=== PATIENT | male | born 1980 | race Caucasian/White ===

== ENCOUNTER 2017-05-18 14:50 | Inpatient (IN) | payer OTHER ==
[~2017-05-18] VITALS: Ht 185.4 cm; Wt 141.5 kg
--- NOTE | ~2017-05-18 | EKG ---
[place], [place] ELECTROCARDIOGRAM REPORT NAME: CARMEN KIRAN JR UNIT #: [id number] ROOM: 411 DOCTOR: DIONY LAIRD MD BIRTHDATE: [birth year] DOS: 05/18/2017 TIME: 2218. IMPRESSION: Sinus rhythm, normal ECG. No prior EKGs to compare. Diony Laird MD CM:EKGRPT:ELECTROCARDIOGRAM REPORT 06 16 DIONY LAIRD MD
[~2017-05-18 14:50] MED LIST: ACETAMINOPHEN-H1 TA2 PO; ATARAX25 MG PO; BACTRIM DS 8001 TA1 PO; BACTROBAN OINT22 GM PO; CITALOPRAM HYDR20 MG PO; CLINDAMYCIN HC300 MG PO; COLCHICINE0.6 M2 PO; DUONEB 3 MG/3 ML3 M1 INH; FLEXERIL5 MG PO; HYDROCODONE BIT1 T11 PO; HYDROXYZINE PAM25 MG PO; INDOMETHACIN50 MG PO; KEFLEX500 MG PO; LISINOPRIL AND1 TA2 PO; MEDROL DOSEPAK4 MG PO; NAPROSYN500 MG PO; NAPROXEN500 MG PO; NORCO 325 MG-51 TAB PO; NORFLEX100 MG PO; PAXIL20 MG PO; PERCOCET 325 MG1 TA7 PO; PHENERGAN W/ DE30 ML PO; PREDNICOT10 MG PO; PREDNISONE20 M1 PO; PREDNISONE20 MG PO; PROAIR HFA0.09 MG/AC INH; PROAIR HFA8.5 GM INH; TRAMADOL HCL50 MG PO; VICO10300 PO; VICODIN 5/500 505 MG PO; XANAX1 MG PO
[2017-05-18 15:22] VITALS: BP 141/85
[2017-05-18 16:40] LABS: HEMATOCRIT 39.7 % (42.0-52.0); HEMOGLOBIN 13.5 g/dl (14.0-18.0); MEAN CELL VOLUME 86.3 fl (80.0-94.0); MEAN CORPUSCULAR HGB 29.3 pg (27.0-31.0); MEAN PLATELET VOLUME 8.7 fl (9.6-12.3); PLATELET COUNT AUTOMATED 261 10*3/uL (130-400); RED CELL DISTRI WIDTH 12.9 % (0-14.5); WHITE BLOOD COUNT 16.4 10*3/uL (4.8-10.8)
[2017-05-18 16:56] LABS: ALBUMIN 3.4 gm/dl (3.1-4.5); ALKALINE PHOSPHATASE 114 U/L (45-117); BUN 14 mg/dl (7-24); CHLORIDE 104 mmol/L (98-107); CREATININE 0.93 mg/dL (0.70-1.30); POTASSIUM 3.9 mmol/L (3.5-5.1); SGOT/AST 19 IU/L (3-35); SGPT/ALT 27 U/L (12-78); SODIUM 139 mmol/L (136-145); TOTAL PROTEIN 7.6 gm/dL (6.4-8.2)
[2017-05-18 16:57] LABS: TROPONIN I < 0.015 ng/ml (<0.045)
[2017-05-18 16:58] LABS: ATYPICAL LYMPHS 2 % (0-0); TOTAL CELLS COUNTED 100 #CELLS
[2017-05-18 16:59] LABS: PLATELET SUFFICIENCY NORMAL (NORMAL)
[2017-05-18 18:29] VITALS: BP 167/97
[2017-05-18 18:48] VITALS: BP 131/84
[2017-05-18 20:00] VITALS: BP 147/87
[2017-05-19] VITALS: BP 129/62
[2017-05-19 04:00] VITALS: BP 130/74
[2017-05-19 07:00] LABS: ALBUMIN 3.2 gm/dl (3.1-4.5); ALKALINE PHOSPHATASE 105 U/L (45-117); BASO # 0.1 10*3/uL (0.0-0.1); BASO % 0.5 % (0.0-1.0); BUN 14 mg/dl (7-24); CHLORIDE 105 mmol/L (98-107); CHOLESTEROL 178 mg/dL (<200); CREATININE 0.89 mg/dL (0.70-1.30); FREE T4 0.97 ng/dl (0.76-1.46); HDL CHOLESTEROL 41 mg/dl (40-60); HEMATOCRIT 39.7 % (42.0-52.0); HEMOGLOBIN 13.6 g/dl (14.0-18.0); LDL CHOLESTEROL 127 mg/dL (9-159); LYMPH # 1.2 10*3/uL (1.3-4.4); MEAN CELL VOLUME 87.1 fl (80.0-94.0); MEAN CORPUSCULAR HGB 29.8 pg (27.0-31.0); MEAN CORPUSCULAR HGB CONC 34.3 g/dl (33.0-37.0); MEAN PLATELET VOLUME 9.1 fl (9.6-12.3); MONO # 0.2 10*3/uL (0.1-1.0); MONO % 1.7 % (3.0-9.0); NEUT # 11.4 10*3/uL (2.3-7.9); NEUT % 87.8 % (47.0-73.0); PHOSPHOROUS 1.8 mg/dL (2.5-4.9); PLATELET COUNT AUTOMATED 241 10*3/uL (130-400); POTASSIUM 4.3 mmol/L (3.5-5.1); RED BLOOD COUNT 4.56 10*6/uL (4.50-5.90); RED CELL DISTRI WIDTH 12.6 % (0-14.5); SGPT/ALT 24 U/L (12-78); SODIUM 138 mmol/L (136-145); TOTAL PROTEIN 7.4 gm/dL (6.4-8.2); TRIGLYCERIDES 48 mg/dl (<150); VLDL CHOLESTEROL 10 mg/dL (6-40)
[2017-05-19 07:06] LABS: SGOT/AST 14 IU/L (3-35); THYROID STIM HORMONE (HS) 0.718 uIU/ml (0.358-4.75)
[2017-05-19 07:26] LABS: INTERNATIONAL NORM RATIO 0.9 (2.0-3.5)
[2017-05-19 07:52] LABS: VITAMIN D, 25-HYDROXY 8.2 ng/mL (30-100)
[2017-05-19 08:00] VITALS: BP 142/77
[2017-05-19 12:00] VITALS: BP 147/83
[2017-05-19 16:00] VITALS: BP 126/97
[2017-05-19 20:03] VITALS: BP 157/88
[2017-05-20] VITALS: BP 161/76
[2017-05-20 08:00] VITALS: BP 158/86
[2017-05-20 08:08] LABS: HEMATOCRIT 37.4 % (42.0-52.0); HEMOGLOBIN 12.6 g/dl (14.0-18.0); MEAN CELL VOLUME 87.6 fl (80.0-94.0); MEAN CORPUSCULAR HGB 29.5 pg (27.0-31.0); MEAN CORPUSCULAR HGB CONC 33.7 g/dl (33.0-37.0); MEAN PLATELET VOLUME 8.9 fl (9.6-12.3); PLATELET COUNT AUTOMATED 277 10*3/uL (130-400); RED BLOOD COUNT 4.27 10*6/uL (4.50-5.90); RED CELL DISTRI WIDTH 13.2 % (0-14.5); WHITE BLOOD COUNT 23.9 10*3/uL (4.8-10.8)
[2017-05-20 08:34] LABS: BASOPHILS 1 % (0-1); PLATELET SUFFICIENCY NORMAL (NORMAL); TOTAL CELLS COUNTED 100 #CELLS
[2017-05-20 08:46] LABS: BUN 14 mg/dl (7-24); CHLORIDE 108 mmol/L (98-107); CREATININE 0.82 mg/dL (0.70-1.30); PHOSPHOROUS 2.6 mg/dL (2.5-4.9); POTASSIUM 3.7 mmol/L (3.5-5.1); SODIUM 142 mmol/L (136-145)
[2017-05-20 12:00] VITALS: BP 160/88
[2017-05-20] MEDS ORDERED: Vitamin D PO (13:08)
[2017-05-20] MEDS ORDERED: ALLOPURINOL100 MG PO (13:08)
== END 2017-05-20 16:03 | disposition home or self-care (01) | DRG 872 ==
LOC: ED 14:50 → 4E 18:07 → EDHOLD 18:07 → 4E 18:23
PROVIDERS: Family Medicine; Nurse Practitioner Family; Student in an Organized Health Care Education/Training Program
DX: A41.9 Sepsis, unspecified organism (principal); E66.01 Morbid (severe) obesity due to excess calories; L03.115 Cellulitis of right lower limb; Z68.41 Body mass index [BMI] 40.0-44.9, adult; D64.9 Anemia, unspecified; M1A.9XX0 Chronic gout, unspecified, without tophus (tophi); I10 Essential (primary) hypertension; F17.200 Nicotine dependence, unspecified, uncomplicated; R73.9 Hyperglycemia, unspecified; G47.33 Obstructive sleep apnea (adult) (pediatric); F41.1 Generalized anxiety disorder; Z71.6 Tobacco abuse counseling; Z78.9 Other specified health status; Z72.89 Other problems related to lifestyle; Z90.49 Acquired absence of other specified parts of digestive tract; Z82.49 Family history of ischemic heart disease and other diseases of the circulatory system

== ENCOUNTER 2017-06-07 14:31 | Emergency (ER) | payer OTHER ==
[~2017-06-07] VITALS: Ht 185.4 cm; Wt 138.8 kg
[~2017-06-07 14:31] MED LIST changes: +ALLOPURINOL100 MG PO; +Vitamin D PO
[2017-06-07 15:18] LABS: BASO # 0.1 10*3/uL (0.0-0.1); EOS # 0.5 10*3/uL (0.0-0.4); EOS % 4.4 % (1.0-4.0); HEMATOCRIT 40.2 % (42.0-52.0); LYMPH # 3.7 10*3/uL (1.3-4.4); LYMPH % 35.8 % (27.0-41.0); MEAN CELL VOLUME 85.4 fl (80.0-94.0); MEAN CORPUSCULAR HGB 29.7 pg (27.0-31.0); MEAN CORPUSCULAR HGB CONC 34.8 g/dl (33.0-37.0); MONO # 1.2 10*3/uL (0.1-1.0); MONO % 11.9 % (3.0-9.0); NEUT # 4.8 10*3/uL (2.3-7.9); NEUT % 46.4 % (47.0-73.0); PLATELET COUNT AUTOMATED 254 10*3/uL (130-400); RED BLOOD COUNT 4.71 10*6/uL (4.50-5.90); RED CELL DISTRI WIDTH 13.3 % (0-14.5); WHITE BLOOD COUNT 10.3 10*3/uL (4.8-10.8)
[2017-06-07 15:33] LABS: ALBUMIN 3.9 gm/dl (3.1-4.5); ALKALINE PHOSPHATASE 92 U/L (45-117); BUN 16 mg/dl (7-24); CHLORIDE 106 mmol/L (98-107); POTASSIUM 3.6 mmol/L (3.5-5.1); SGOT/AST 27 IU/L (3-35); SGPT/ALT 34 U/L (12-78); SODIUM 139 mmol/L (136-145); TOTAL PROTEIN 7.8 gm/dL (6.4-8.2)
== END 2017-06-07 16:21 | disposition home or self-care (01) ==
LOC: ED 14:31
PROVIDERS: Nurse Practitioner Family
DX: M79.605 Pain in left leg (principal); R03.0 Elevated blood-pressure reading, without diagnosis of hypertension; R60.0 Localized edema; I10 Essential (primary) hypertension; M10.9 Gout, unspecified; E66.01 Morbid (severe) obesity due to excess calories; F17.200 Nicotine dependence, unspecified, uncomplicated

== ENCOUNTER → 2017-06-19 | Outpatient (CLI) | payer OTHER ==
[2017-06-19 15:10] LABS: BASO # 0.1 10*3/uL (0.0-0.1); BASO % 0.9 % (0.0-1.0); EOS # 0.5 10*3/uL (0.0-0.4); EOS % 3.9 % (1.0-4.0); HEMOGLOBIN 13.8 g/dl (14.0-18.0); LYMPH % 25.8 % (27.0-41.0); MEAN CORPUSCULAR HGB 29.7 pg (27.0-31.0); MEAN CORPUSCULAR HGB CONC 34.5 g/dl (33.0-37.0); MEAN PLATELET VOLUME 8.6 fl (9.6-12.3); MONO # 1.3 10*3/uL (0.1-1.0); MONO % 11.3 % (3.0-9.0); NEUT # 6.7 10*3/uL (2.3-7.9); NEUT % 57.3 % (47.0-73.0); PLATELET COUNT AUTOMATED 268 10*3/uL (130-400); RED BLOOD COUNT 4.65 10*6/uL (4.50-5.90); RED CELL DISTRI WIDTH 13.2 % (0-14.5); WHITE BLOOD COUNT 11.7 10*3/uL (4.8-10.8)
[2017-06-19 15:44] LABS: ALBUMIN 3.7 gm/dl (3.1-4.5); ALKALINE PHOSPHATASE 101 U/L (45-117); BUN 13 mg/dl (7-24); CHLORIDE 103 mmol/L (98-107); CHOLESTEROL 190 mg/dL (<200); HDL CHOLESTEROL 30 mg/dl (40-60); LDL CHOLESTEROL 85 mg/dL (9-159); POTASSIUM 4.3 mmol/L (3.5-5.1); SGOT/AST 25 IU/L (3-35); SGPT/ALT 40 U/L (12-78); SODIUM 138 mmol/L (136-145); TOTAL PROTEIN 7.6 gm/dL (6.4-8.2); TRIGLYCERIDES 375 mg/dl (<150); VLDL CHOLESTEROL 75 mg/dL (6-40)
== END | disposition home or self-care (01) ==
LOC: LAB 14:26
PROVIDERS: Family Medicine
DX: E78.9 Disorder of lipoprotein metabolism, unspecified (principal); E55.9 Vitamin D deficiency, unspecified; R53.83 Other fatigue; R60.0 Localized edema

== ENCOUNTER 2017-07-05 11:51 | Emergency (ER) | payer OTHER ==
[~2017-07-05] VITALS: Ht 185.4 cm; Wt 145.1 kg
[2017-07-05] MEDS ORDERED: IBU800 MG PO (13:43)
[2017-07-05] MEDS ORDERED: TYLENOL325 M1 PO (13:43)
[2017-07-05] MEDS ORDERED: PENICILLIN-VK500 MG PO (13:43)
== END 2017-07-05 13:52 | disposition home or self-care (01) ==
LOC: ED 11:51
DX: K04.7 Periapical abscess without sinus (principal); F17.200 Nicotine dependence, unspecified, uncomplicated; E66.01 Morbid (severe) obesity due to excess calories; I10 Essential (primary) hypertension; M10.9 Gout, unspecified

== ENCOUNTER 2017-07-18 19:52 | Emergency (ER) | payer OTHER ==
[~2017-07-18] VITALS: Ht 185.4 cm; Wt 145.1 kg
[~2017-07-18 19:52] MED LIST changes: +IBU800 MG PO; +PENICILLIN-VK500 MG PO; +TYLENOL325 M1 PO
[2017-07-18] MEDS ORDERED: COLCHICINE0.6 M1 PO (20:00)
== END 2017-07-18 20:01 | disposition home or self-care (01) ==
LOC: ED 19:52
DX: M10.9 Gout, unspecified (principal); M79.671 Pain in right foot; F17.200 Nicotine dependence, unspecified, uncomplicated; Z90.49 Acquired absence of other specified parts of digestive tract; Z79.899 Other long term (current) drug therapy

== ENCOUNTER 2017-08-24 16:11 | Emergency (ER) | payer OTHER ==
[~2017-08-24] VITALS: Ht 185.4 cm; Wt 141.1 kg
[~2017-08-24 16:11] MED LIST changes: +COLCHICINE0.6 M1 PO
[2017-08-24] MEDS ORDERED: FLONASE ALLERG9.9 ML NAS (18:14)
[2017-08-24] MEDS ORDERED: ROBITUSSIN DM 105 ML PO (18:14)
[2017-08-24] MEDS ORDERED: AMOXICILLIN500 M2 PO (18:14)
== END 2017-08-24 19:10 | disposition home or self-care (01) ==
LOC: ED 16:11
DX: J01.90 Acute sinusitis, unspecified (principal); J20.9 Acute bronchitis, unspecified; F17.200 Nicotine dependence, unspecified, uncomplicated; Z90.49 Acquired absence of other specified parts of digestive tract; Z79.899 Other long term (current) drug therapy

== ENCOUNTER 2017-09-28 09:19 | Emergency (ER) | payer OTHER ==
[~2017-09-28] VITALS: Ht 185.4 cm; Wt 131.5 kg
[~2017-09-28 09:19] MED LIST changes: +AMOXICILLIN500 M2 PO; +FLONASE ALLERG9.9 ML NAS; +ROBITUSSIN DM 105 ML PO
[2017-09-28] MEDS ORDERED: Motrin,Rufen800 MG PO (11:18)
== END 2017-09-28 11:41 | disposition home or self-care (01) ==
LOC: ED 09:19
DX: M25.552 Pain in left hip (principal); Z90.49 Acquired absence of other specified parts of digestive tract

== ENCOUNTER 2018-03-07 11:36 | Emergency (ER) | payer SELFPAY ==
[~2018-03-07] VITALS: Ht 185.4 cm; Wt 136.1 kg
[~2018-03-07 11:36] MED LIST changes: +Motrin,Rufen800 MG PO; +PREDNISONE10 MG PO
[2018-03-07 12:23] LABS: HEMATOCRIT 42.1 % (42.0-52.0); HEMOGLOBIN 14.5 g/dl (14.0-18.0); MEAN CELL VOLUME 88.6 fl (80.0-94.0); MEAN CORPUSCULAR HGB 30.5 pg (27.0-31.0); MEAN CORPUSCULAR HGB CONC 34.4 g/dl (33.0-37.0); MEAN PLATELET VOLUME 8.4 fl (9.6-12.3); PLATELET COUNT AUTOMATED 217 10*3/uL (130-400); RED BLOOD COUNT 4.75 10*6/uL (4.50-5.90); RED CELL DISTRI WIDTH 13.5 % (0-14.5); WHITE BLOOD COUNT 14.4 10*3/uL (4.8-10.8)
[2018-03-07 12:37] LABS: ALBUMIN 3.6 gm/dl (3.1-4.5); ALKALINE PHOSPHATASE 94 U/L (45-117); BUN 10 mg/dl (7-24); CHLORIDE 104 mmol/L (98-107); CREATININE 0.91 mg/dL (0.70-1.30); LIPASE 152 U/L (73-393); POTASSIUM 4.1 mmol/L (3.5-5.1); SGOT/AST 25 IU/L (3-35); SGPT/ALT 33 U/L (12-78); SODIUM 138 mmol/L (136-145); URIC ACID 12.8 mg/dL (3.5-7.2)
[2018-03-07 12:43] LABS: ATYPICAL LYMPHS 6 % (0-0); BASOPHILS 1 % (0-1); TOTAL CELLS COUNTED 100 #CELLS
[2018-03-07 12:44] LABS: PLATELET SUFFICIENCY NORMAL (NORMAL)
[2018-03-07] MEDS ORDERED: INDOMETHACIN50 MG PO (12:54)
== END 2018-03-07 13:35 | disposition home or self-care (01) ==
LOC: ED 11:36
PROVIDERS: Nurse Practitioner Family
DX: M10.9 Gout, unspecified (principal); R10.12 Left upper quadrant pain; F17.200 Nicotine dependence, unspecified, uncomplicated; Z90.49 Acquired absence of other specified parts of digestive tract

== ENCOUNTER 2020-09-20 11:04 | Emergency (ER) | payer SELFPAY ==
[~2020-09-20] VITALS: Ht 185.4 cm; Wt 127.0 kg
== END 2020-09-20 20:47 | disposition home or self-care (01) ==
LOC: ED 11:04
DX: S16.1XXA Strain of muscle, fascia and tendon at neck level, initial encounter (principal); S00.83XA Contusion of other part of head, initial encounter; M87.851 Other osteonecrosis, right femur; F17.200 Nicotine dependence, unspecified, uncomplicated; Z90.49 Acquired absence of other specified parts of digestive tract; W19.XXXA Unspecified fall, initial encounter; Y93.89 Activity, other specified; Y92.89 Other specified places as the place of occurrence of the external cause; Y99.8 Other external cause status

== ENCOUNTER 2020-12-07 00:32 | Inpatient (IN) | payer OTHER ==
[~2020-12-07] VITALS: Ht 185.4 cm; Wt 135.6 kg
[2020-12-07] VITALS (7 sets, daily range): BP systolic 118–172; BP diastolic 71–90
[2020-12-07 01:35] LABS: HEMATOCRIT 40.7 % (42.0-52.0); MEAN CELL VOLUME 85.9 fl (80.0-94.0); MEAN CORPUSCULAR HGB 28.7 pg (27.0-31.0); MEAN CORPUSCULAR HGB CONC 33.4 g/dl (33.0-37.0); MEAN PLATELET VOLUME 8.8 fl (9.6-12.3); PLATELET COUNT AUTOMATED 234 10*3/uL (130-400); RED BLOOD COUNT 4.74 10*6/uL (4.50-5.90); RED CELL DISTRI WIDTH 14.5 % (0-14.5); WHITE BLOOD COUNT 15.5 10*3/uL (4.8-10.8)
[2020-12-07 01:57] LABS: BASOPHILS 1 % (0-1); TOTAL CELLS COUNTED 100 #CELLS
[2020-12-07 01:58] LABS: PLATELET SUFFICIENCY NORMAL (NORMAL)
[2020-12-07 01:59] LABS: ALBUMIN 3.9 gm/dl (3.1-4.5); ALKALINE PHOSPHATASE 93 U/L (45-117); BUN 21 mg/dl (7-24); CHLORIDE 110 mmol/L (98-107); CREATININE 0.97 mg/dL (0.70-1.30); LIPASE 115 U/L (73-393); POTASSIUM 3.7 mmol/L (3.5-5.1); SGOT/AST 24 IU/L (3-35); SGPT/ALT 29 U/L (12-78); SODIUM 136 mmol/L (136-145); TOTAL PROTEIN 8.1 gm/dL (6.4-8.2)
[2020-12-07 02:34] LABS: BILIRUBIN Negative (Negative); BLOOD 1+ (Negative); CLARITY Clear (Clear); COLOR Yellow (Yellow); GLUCOSE Negative (Negative); KETONE Negative (Negative); LEUKO ESTERASE Trace (Negative); NITRITE Negative (Negative); SPECIFIC GRAVITY 1.015 (1.001-1.030)
[2020-12-07 02:59] LABS: BACTERIA 1+; MUCOUS 1+; RBC 16-20 rbc/hpf (0-2); WBC 21-30 wbc/hpf (0-5)
[2020-12-07 06:52] LABS: ALBUMIN 3.4 gm/dl (3.1-4.5); BUN 19 mg/dl (7-24); CHLORIDE 110 mmol/L (98-107); HEMATOCRIT 38.6 % (42.0-52.0); MEAN CELL VOLUME 85.8 fl (80.0-94.0); MEAN CORPUSCULAR HGB CONC 32.6 g/dl (33.0-37.0); MEAN PLATELET VOLUME 8.9 fl (9.6-12.3); PLATELET COUNT AUTOMATED 223 10*3/uL (130-400); POTASSIUM 3.3 mmol/L (3.5-5.1); RED CELL DISTRI WIDTH 14.4 % (0-14.5); SGOT/AST 22 IU/L (3-35); SGPT/ALT 25 U/L (12-78); SODIUM 137 mmol/L (136-145); TRIGLYCERIDES 262 mg/dl (<150)
[2020-12-07 07:00] LABS: ALKALINE PHOSPHATASE 85 U/L (45-117); CHOLESTEROL 169 mg/dL (<200); CREATININE 0.87 mg/dL (0.70-1.30); FREE T4 1.05 ng/dl (0.76-1.46); LDL CHOLESTEROL 91 mg/dL (9-159); TOTAL PROTEIN 7.3 gm/dL (6.4-8.2)
[2020-12-07 07:34] LABS: VITAMIN D, 25-HYDROXY 17.6 ng/mL (30-100)
[2020-12-07 07:40] LABS: BASOPHILS 3 % (0-1); TOTAL CELLS COUNTED 100 #CELLS
[2020-12-07 07:41] LABS: PLATELET SUFFICIENCY NORMAL (NORMAL)
[2020-12-07] MEDS ORDERED: TYLENOL325 M2 PO (10:30)
[2020-12-07] MEDS ORDERED: MOTRIN IB200 M1 PO (10:30)
[2020-12-08 06:56] LABS: BASO # 0.1 10*3/uL (0.0-0.1); BASO % 0.9 % (0.0-1.0); EOS # 0.7 10*3/uL (0.0-0.4); EOS % 6.8 % (1.0-4.0); HEMATOCRIT 38.5 % (42.0-52.0); LYMPH # 3.1 10*3/uL (1.3-4.4); MEAN CELL VOLUME 86.5 fl (80.0-94.0); MEAN CORPUSCULAR HGB 28.3 pg (27.0-31.0); MEAN CORPUSCULAR HGB CONC 32.7 g/dl (33.0-37.0); MEAN PLATELET VOLUME 8.9 fl (9.6-12.3); MONO # 1.2 10*3/uL (0.1-1.0); MONO % 12.2 % (3.0-9.0); NEUT # 4.9 10*3/uL (2.3-7.9); NEUT % 48.5 % (47.0-73.0); PLATELET COUNT AUTOMATED 214 10*3/uL (130-400); RED BLOOD COUNT 4.45 10*6/uL (4.50-5.90); RED CELL DISTRI WIDTH 14.1 % (0-14.5); WHITE BLOOD COUNT 10.1 10*3/uL (4.8-10.8)
[2020-12-08 07:27] LABS: ALBUMIN 3.2 gm/dl (3.1-4.5); ALKALINE PHOSPHATASE 104 U/L (45-117); BUN 16 mg/dl (7-24); CHLORIDE 109 mmol/L (98-107); CREATININE 0.62 mg/dL (0.70-1.30); POTASSIUM 3.7 mmol/L (3.5-5.1); SGOT/AST 27 IU/L (3-35); SGPT/ALT 30 U/L (12-78); SODIUM 140 mmol/L (136-145); TOTAL PROTEIN 6.7 gm/dL (6.4-8.2)
[2020-12-08 07:28] LABS: LDH 182 U/L (87-241)
[2020-12-08 08:00] VITALS: BP 126/71
[2020-12-08 16:00] VITALS: BP 148/72
[2020-12-08 18:00] VITALS: BP 148/72
[2020-12-08 20:00] VITALS: BP 145/83
[2020-12-09] VITALS: BP 151/83
[2020-12-09 08:00] VITALS: BP 138/71
[2020-12-09 12:00] VITALS: BP 148/92
[2020-12-09] MEDS ORDERED: CIPRO500 MG PO (12:14)
== END 2020-12-09 12:50 | disposition home or self-care (01) | DRG 720 ==
LOC: ED 00:32 → EDHOLD 04:54 → 5E 04:54
PROVIDERS: Emergency Medicine; Family Medicine; Internal Medicine; ADMIT Emergency Medicine; ATTEND Emergency Medicine
DX: A41.9 Sepsis, unspecified organism (principal); N30.01 Acute cystitis with hematuria; F41.1 Generalized anxiety disorder; I10 Essential (primary) hypertension; G47.33 Obstructive sleep apnea (adult) (pediatric); Z71.6 Tobacco abuse counseling; R73.9 Hyperglycemia, unspecified; F17.210 Nicotine dependence, cigarettes, uncomplicated; D64.9 Anemia, unspecified; M10.9 Gout, unspecified; E87.8 Other disorders of electrolyte and fluid balance, not elsewhere classified; Z79.899 Other long term (current) drug therapy; Z79.1 Long term (current) use of non-steroidal anti-inflammatories (NSAID)